=== PATIENT | female | born 1990 | race Hispanic/Latino ===

== ENCOUNTER 2017-01-25 02:04 | Inpatient (IN) | payer MEDICAID, OTHER, SELFPAY ==
[2017-01-25 02:32] VITALS: BMI 28.9
[2017-01-25] MEDS ORDERED: HYDROcodone/Acetaminophen 5/325 mg Tablet PO PRN ×2 (02:57)
[2017-01-25] MEDS ORDERED: Ondansetron HCl/PF 4 MG/2 ML Vial IVP PRN ×2 (02:57→11:34)
[2017-01-25] MEDS ORDERED: LR / Pitocin 40 units/1000 ml 1,000 ML IV PRN (02:57)
[2017-01-25] MEDS ORDERED: Lidocaine 1% (PF) 30 ML VIAL SC PRN (02:57)
[2017-01-25] MEDS ORDERED: Ibuprofen 800 MG TAB PO PRN (02:57)
[2017-01-25] MEDS ORDERED: Lactated Ringer's 1,000 ML IV SCH (03:00)
[2017-01-25] MEDS: Lactated Ringer's 1,000 ML IV SCH ×4 (03:55→20:59)
[2017-01-25 04:33] LABS: Hematocrit 44.6 % (36.0-47.0); Mean Platelet Volume 7.4 fL (7.4-10.4); Red Blood Cell (RBC) Count 4.58 mill/uL (4.20-5.40); White Blood Cell (WBC) Count 10.3 thou/uL (4.8-10.8)
[2017-01-25] MEDS: LR 500 ML/Oxytocin 10 units 500 ML IV SCH (07:00)
[2017-01-25] MEDS ORDERED: Fentanyl 4 mcg/Marc 0.1% Cadd 100 ML ONE (07:07)
[2017-01-25] MEDS ORDERED: ePHEDrine/0.9% NaCl/PF SYRINGE 50 mg/10 ml SLOW IVP PRN (11:34)
[2017-01-25] MEDS ORDERED: diphenhydrAMINE 50 MG/ML VIAL IVP PRN (11:34)
[2017-01-25] MEDS ORDERED: Lactated Ringer's 500 ML IV PRN (11:34)
[2017-01-25] MEDS ORDERED: Promethazine HCl 25 MG/ML VIAL IM PRN (11:34)
[2017-01-25] MEDS ORDERED: Eucerin (Mineral Oil/Petrolatum,White) 30 gm Jar TOP PRN (11:34)
[2017-01-25] MEDS ORDERED: Acetaminophen 325 MG TAB PO PRN (11:34)
[2017-01-25] MEDS ORDERED: Naloxone HCl 0.4 mg/ml Vial IVP PRN ×2 (11:34)
[2017-01-25] MEDS ORDERED: Communication Order-Pharmacy FS SCH (11:45)
[2017-01-25] MEDS: Fentanyl 4mcg/Marcaine 0.1% Cassette 100 ML EPIDURAL SCH ×2 (13:14→19:28)
[2017-01-26] MEDS ORDERED: Recombivax (HEP-B) 5 MCG/0.5 ML VIAL IM ONE (03:11)
[2017-01-26] MEDS ORDERED: Boudreaux's Butt Paste 16% Oin 30 GM TUBE TOP PRN (03:11)
[2017-01-26] MEDS ORDERED: Erythromycin Base 0.5% Oint 1 GM TUBE EA EYE SCH (03:11)
[2017-01-26] MEDS ORDERED: Phytonadione Neonatal 1 MG/0.5 ML AMP IM SCH (03:11)
[2017-01-26] MEDS: Ibuprofen 800 MG TAB PO SCH ×3 (05:57→20:51)
[2017-01-26] MEDS ORDERED: HYDROcodone/Acetaminophen 5/325 mg Tablet PO PRN (07:54)
[2017-01-26] MEDS ORDERED: Ondansetron HCl/PF 4 MG/2 ML Vial IVP PRN (07:54)
[2017-01-26] MEDS ORDERED: Preparation H Ointment 28 GM TUBE PR PRN (07:54)
[2017-01-26] MEDS ORDERED: Adacel (T-DAP) 0.5 ML VIAL IM ONE (07:54)
[2017-01-26] MEDS ORDERED: Milk Of Magnesia 30 ML UDCUP PO PRN (07:54)
[2017-01-26] MEDS ORDERED: Acetaminophen/Codeine 30-300mg Tablet PO PRN (07:54)
[2017-01-26] MEDS ORDERED: Benzocaine/Menthol 20-0.5% 60 ML CAN TOP PRN (07:54)
[2017-01-26] MEDS ORDERED: Measles/Mumps/Rubella 10 MCG/0.5 ML VIAL SC ONE (07:54)
[2017-01-26] MEDS ORDERED: Bisacodyl 10 MG SUPP PR PRN (07:54)
[2017-01-26] MEDS: Docusate Calcium (SURFAK) 240 MG CAP PO SCH ×3 (08:47→20:51)
[2017-01-26] MEDS: LR 500 ML/Oxytocin 10 units 500 ML IV SCH (11:48)
[2017-01-26] MEDS ORDERED: Bupivacaine 0.25% HCL 30 ML VIAL ONE (22:45)
[2017-01-26] MEDS ORDERED: Lidocaine 2% MPF 10 ML AMP (For Epidural Use) ONE (22:45)
[2017-01-26] MEDS ORDERED: Bupivacaine PF 0.5% 30 ML VIAL ONE (22:45)
[2017-01-27] MEDS: Docusate Calcium (SURFAK) 240 MG CAP PO SCH ×3 (00:38→07:25)
[2017-01-27] MEDS: Ibuprofen 800 MG TAB PO SCH ×2 (04:35→13:23)
[2017-01-27 07:39] VITALS: BP 97/61; TEMP 98.3
[2017-01-27] MEDS ORDERED: FLU VACC QS2017-18 36 mo. & older 0.5 ML SYRINGE IM ONE (09:00)
== END 2017-01-27 14:55 | disposition home or self-care (01) | DRG 775 ==
LOC: L&D/OP 02:04 → L&D 03:03 → 3SW 01-26 02:14
PROVIDERS: ADMIT Family Medicine; ATTEND Family Medicine
PROC: 10E0XZZ Delivery of Products of Conception, External Approach (ICD-10-PCS; principal; 2017-01-25)
PROC: 0UQGXZZ Repair Vagina, External Approach (ICD-10-PCS; 2017-01-25)
DX: O70.0 First degree perineal laceration during delivery (principal); Z37.0 Single live birth; Z3A.39 39 weeks gestation of pregnancy
CPT/HCPCS: 85027; 86780; 87340; J2001; J7120; S0020

== ENCOUNTER 2017-05-12 12:34 | Outpatient (CLI) | payer MEDICAID ==
--- NOTE | 2017-05-12 14:42 | ULT ---
PELVIC ULTRASOUND WITH DOPPLER COLOR FLOW: TECHNIQUE: Transvaginal and pelvic ultrasound performed. COMPARISON: No prior comparison. INDICATION: Evaluate viability. FINDINGS: There is a large hypoechoic ovoid structure within the uterus occupying the upper to mid aspect. Int ernal complex echogenicity is present which is nonspecific. A viable internal pole is not seen. Minute areas of decreased echogenicity adjacent the presumed gestational sac are too small to defin itively characterize. Doppler assessment performed which reveals vascularity of the right ovary. Doppler assessment does n ot confirm flow to the left ovary. No significant free pelvic fluid is seen. IMPRESSION: Presumed large gestational sac with internal complex echogenicity. A live intrauterine gestation is not demonstrated. Recommend appropriate clinical management as well as correlation with beta HCG padmini ues. POS: JAMILA
== END 2017-05-12 12:35 | disposition home or self-care (01) ==
LOC: ULT 12:34
PROVIDERS: ATTEND Nurse Practitioner
DX: Z34.81 Encounter for supervision of other normal pregnancy, first trimester (principal)
CPT/HCPCS: 76856; 93976